=== PATIENT | male | born 1980 | race Caucasian/White ===

== ENCOUNTER 2019-04-04 13:09 | Observation (INO) ==
[2019-04-04] MEDS ORDERED: ONDANSETRON 4 MG/2 ML VIAL IV ONE (13:28)
[2019-04-04] MEDS ORDERED: 0.9 % SODIUM CHLORIDE 1,000 ML IV ONE ×3 (13:31→15:53)
[2019-04-04] MEDS ORDERED: 0.9 % SODIUM CHLORIDE 2,000 ML IV ONE (13:34)
[2019-04-04] MEDS ORDERED: HYDROmorphone 2 MG/ML VIAL IV ONE (13:34)
--- NOTE | 2019-04-04 13:41 | Emergency Department Note ---
General Adult HPI - General Chief complaint: Nausea/Vomiting/Diarrhea Stated complaint: N/V, Red emesis, Abd Pain Time Seen by Provider: 04/04/19 13:20 Source: patient, family Mode of arrival: ambulatory Limitations: no limitations - History of Present Illness HPI Narrative: 38-year-old male comes in with the onset of nausea vomiting started this morning when he woke up. He was seen yesterday in the ER for a severe headache that had been going on for [address] did a CT scan of the head and soft tissues of the neck which was unrevealing except for perhaps mild cellulitis of the back of his neck and some degenerative changes. He notes melena this morning with stool. He is having severe epigastric pain as well. Cannot stop vomiting - Related Data Previous Rx's Medication Instructions Recorded Cephalexin [Keflex] 500 mg PO QID #40 cap 04/03/19 Allergies Allergy/AdvReac Type Severity Reaction Status Date / Time No Known Drug Allergies Allergy Verified 04/03/19 12:06 Review of Systems All systems ED: reviewed and negative except as stated. Past Medical History - Past Medical History Attestation: Yes: The following information was validated with the patient. Medical history: Reports: other (CHRONIC BACK PAIN) Surgical history ED: Reports: non-contributory - Social History smoking status: Current some day smoker Alcohol use: Reports: Occasionally Drug use: Reports: none Physical Exam Thin male mildly diaphoretic. Normocephalic atraumatic. Conjunctive are clear sclerae white and icteric. No nasal discharge or congestion. Oropharynx pink moist. Neck is supple without lymphadenopathy or thyromegaly. Exam of the posterior neck shows cervical prominence with mild redness. Nontender to palpation. I do not feel any fluctuance or induration suggestive of an abscess- this looks more like a lipoma-his sunburn complicates diagnosis . He does report neck tenderness after laying down no but not over the prominence. He is able to move his neck and head normally. his prominence is approximately 4 cm in diameter so and again is mildly erythematous. Heart is regular rate and rhythm. He has displacement of the PMI inferiorly. Lungs are clear to auscultation bilaterally without wheezes rales rhonchi or respiratory distress. Back does show evidence of scoliosis. Abdomen is soft tender in the epigastric area but otherwise not. No peritoneal signs or guarding. He is violently retching from time to time. No pedal edema. +2 radial pulse. Alert oriented I came back later did a rectal exam. He is got a small external hemorrhoid tag but there is no bleeding or fissure noted. Hemoccult negative. Adequate rectal tone Limitations: no limitations Course Vital Signs Temperature 97.0 F 04/04/19 13:10 Pulse Rate 61 04/04/19 13:10 Respiratory Rate 30 H 04/04/19 13:10 Blood Pressure 119/72 04/04/19 13:10 Pulse Oximetry (%) 100 04/04/19 13:10 Temperature 97.0 F 04/04/19 13:10 Pulse Rate 77 04/04/19 15:50 Respiratory Rate 24 H 04/04/19 13:31 Blood Pressure 115/73 04/04/19 15:50 Pulse Oximetry (%) 98 04/04/19 15:50 Medical Decision Making - Lab Data Lab results reviewed: Yes I reviewed the patient's lab results. Result diagrams: 04/04/19 13:39 04/04/19 13:39 Lab Results 04/04/19 04/04/19 Range/Units 13:39 13:39 WBC 26.5 H (4.5-11.0) K/mcL RBC 4.59 (4.50-5.90) M/mcL Hgb 12.1 L (13.5-16.5) g/dL Hct 37.8 L (41.0-55.0) % MCV 82.4 (80.0-100.0) fL MCH 26.4 (26.0-34.0) pg MCHC 32.1 (31.0-36.0) g/dL RDW 15.5 H (11.5-14.5) % Plt Count 223 (140-440) K/mcL MPV 10.2 (7.4-10.4) fL Gran % 89.0 H (38.0-78.0) % Lymph % (Auto) 4.9 L (15.5-49.0) % Rooks % (Auto) 6.0 (1.0-12.0) % Eos % (Auto) 0 (0.0-7.0) % Baso % (Auto) 0.1 (0.0-2.0) % Gran # 23.6 H (1.8-8.0) K/mcL Lymph # (Auto) 1.3 L (1.5-4.8) K/mcL Rooks # (Auto) 1.6 H (0.1-0.9) K/mcL Eos # (Auto) 0 (0.0-0.7) K/mcL Baso # (Auto) 0 (0.0-0.3) K/mcL Sodium 143 (133-145) mmol/L Potassium 3.6 (3.3-5.1) mmol/L Chloride 106 (96-108) mmol/L Carbon Dioxide 22 (22-30) mmol/L Anion Gap 15.0 (8-16) BUN 14 (6-20) mg/dl Creatinine 0.8 (0.7-1.2) mg/dl GFR Calculation 113 Glucose 150 H (70-105) mg/dL Calcium 9.2 (8.6-10.4) mg/dl Total Bilirubin 0.6 (0.0-1.0) mg/dL AST 18 (0-37) U/l ALT 13 (0-40) U/l Alkaline Phosphatase 64 (39-117) U/L Total Protein 7.2 (5.9-8.4) gm/dL Albumin 4.4 (3.2-5.2) gm/dL Globulin 2.8 (2.2-3.7) gm/dL Albumin/Globulin Ratio 1.6 (1.0-2.3) Amylase 62 (28-100) U/L Lipase 16 (7-60) U/L - Radiology Data Radiology results reviewed: Yes I reviewed the patient's radiology results. X-ray of the abdomen 2 views shows nonspecific bowel gas pattern. No free air under the diaphragm. Significant scoliosis is noted Disposition Pt seen by COMMUNITY HEALTH EDUCATOR/PA only: No Clinical Impression: Drug-induced nausea and vomiting, Upper GI bleed, Melena Summary: Suspect drug-induced nausea and vomiting from medications received yesterday i.e. Keflex and Robaxin. He may have an ulcer as well with associated melena and coffee-ground emesis-i.e. an upper GI bleed. Esophagitis is also in the differential especially given his violent retching. Order laboratory and x-ray. Start IV fluids Nexium and Zofran Discussed results with patient and with Dr. Freedom Waddell, landing signal officer. He agreed to accept the patient as a tour consultant do endoscopy. We will continue Nexium drip. Patient is requiring Dilaudid for belly pain as well I then discussed the case with Dr. Khan, hospitalist, who agreed to accept the patient for further care and evaluation in the hospital Disposition: Xfer As Inpt ([facility]) Condition: Fair Referrals: Sadie Parrish PA-C [Primary Care Provider] -
[2019-04-04] MEDS ORDERED: ESOMEPRAZOLE 80 MG in 0.9 % SODIUM CHLORIDE 50 ML IV SCH (13:45)
[2019-04-04] MEDS ORDERED: ESOMEPRAZOLE 80 MG in 0.9 % SODIUM CHLORIDE 50 ML IV ONE (14:15)
--- NOTE | 2019-04-04 14:23 | XRay Report ---
CLINICAL INFORMATION: melena, epigastric pain COMPARISON: None. FINDINGS: The stool gas pattern is unremarkable. There is no free air, soft tissue mass, organomegaly or pathologic calcification. IMPRESSION: Normal abdomen Interpreted and Authenticated by: Farzad Alfaro 04/04/19
[2019-04-04 14:26] LABS: Basophils # (Auto) 0 K/mcL (0.0-0.3); Basophils % (Auto) 0.1 % (0.0-2.0); Eosinophils # (Auto) 0 K/mcL (0.0-0.7); Eosinophils % (Auto) 0 % (0.0-7.0); Hematocrit 37.8 % (41.0-55.0); Hemoglobin 12.1 g/dL (13.5-16.5); Lymphocytes # (Auto) 1.3 K/mcL (1.5-4.8); Lymphocytes % (Auto) 4.9 % (15.5-49.0); Mean Cell Volume 82.4 fL (80.0-100.0); Mean Corpuscular HGB Conc 32.1 g/dL (31.0-36.0); Mean Platelet Volume 10.2 fL (7.4-10.4); Monocytes # (Auto) 1.6 K/mcL (0.1-0.9); Platelet Count 223 K/mcL (140-440); RBC 4.59 M/mcL (4.50-5.90); Red Cell Distribution Width 15.5 % (11.5-14.5); WBC 26.5 K/mcL (4.5-11.0)
[2019-04-04] MEDS: HYDROmorphone 2 MG/ML VIAL IV PRN ×4 (14:33→18:44)
[2019-04-04 14:48] LABS: ALT/SGPT 13 U/l (0-40); AST/SGOT 18 U/l (0-37); Albumin 4.4 gm/dL (3.2-5.2); Albumin/Globulin Ratio 1.6 (1.0-2.3); Alkaline Phosphatase 64 U/L (39-117); Amylase 62 U/L (28-100); Bilirubin,Total 0.6 mg/dL (0.0-1.0); Blood Urea Nitrogen 14 mg/dl (6-20); Calcium 9.2 mg/dl (8.6-10.4); Carbon Dioxide 22 mmol/L (22-30); Chloride 106 mmol/L (96-108); Globulin 2.8 gm/dL (2.2-3.7); Glomerular Filtration Rate 113; Glucose 150 mg/dL (70-105)
[2019-04-04] MEDS ORDERED: PANTOPRAZOLE 80 MG in 0.9 % SODIUM CHLORIDE 100 ML IV SCH (15:30)
[2019-04-04] MEDS ORDERED: ESOMEPRAZOLE 80 MG in 0.9 % SODIUM CHLORIDE 100 ML IV SCH (16:00)
--- NOTE | 2019-04-04 16:37 | Internal Med History&Physical ---
Medical - H&P: HPI Patient information: Note initiated : 04/04/19 at 4:34 pm Service Date, if different from initiated Date: [] Patient: Joel Morton a 38 y/o M admitted on for N/V, Red emesis, Abd Pain. Chief Complaint: [] History of present illness: Mr. Morton is a 38 year old M with history of scoliosis and chronic pain presents to the emergency room for evaluation of nausea vomiting. The patient notes his symptoms started approximately 1 week ago he had a headache, that has been in the occipital region sharp worse with activity better with rest and pain meds. The patient was seen in the emergency room yesterday for this headache and neck pain. He had a CT scan done which was unremarkable, the patient had a neck CT done which showed that he has C7 nerve compression. There was also concern about questionable cellulitis between see 3 and T2 region. The patient has a swelling in that region which he noticed a few months ago. It was a painless swelling but was uncomfortable for the patient. The pa tient was prescribed some Keflex and muscle relaxants and sent home. This morning the patient woke up with significant epigastric abdominal pain sharp in nature associated with nausea and vomiting, he noted that he had noticed black stools. No bright red blood in stool. He did have initially dark blackish old clots according to him in the initial vomitus, which later then became bright red blood. Total volume is approximately 2 to 3 teaspoons. He thought that his symptoms were resolved by itself and therefore he waited for a few hours when the symptoms did not respond he came to the emergency room for further evaluation. The patient denies any changes in vision or difficulty in swallowing any photophobia or phonophobia any chest pain shortness of breath cough he does admit to having abdominal pain nausea vomiting, denies any urinary complaints has chronic pain in his ankles otherwise no other skin rashes or joint pains. On presenting to the emergency room, patient was afebrile hemodynamically stable saturating more than 90% on room air. Labs show a WBC count of 26,000, hemoglobin of 12.1, it was 12.6 yesterday, yesterday WBC count was normal. Platelets 223. Elect lites are stable BUN is 14 glucose is 150 GI was consulted who advised that the patient would benefit from an endoscopy patient is being admitted to the hospital for EGD scope he can concern for upper GI bleed. All systems: reviewed and no additional remarkable complaints except as stated (After today's lab) Medical - H&P: H Medical history: Medical History (Last Updated 01/15/19 @ 14:49 by Viktoria Whitman) Scoliosis (Chronic) Gout (Chronic ~2016) Depression (Chronic ~1990) Anxiety (Chronic ~1990) Chronic back pain (Acute) History of scoliosis (Acute) Surgical history: Past Surgical History (Last Updated 01/15/19 @ 14:49 by Viktoria Whitman) History of hernia surgery (Chronic) Family history: reviewed and not pertinent Social history: Active smoker Daily marijuana use Denies other recreational drug use Denies use of alcohol Medical - H&P: Meds Home Medications Medication Instructions Recorded Confirmed Type Cephalexin [Keflex] 500 mg PO QID #40 cap 04/03/19 Rx Allergies Allergy/AdvReac Type Severity Reaction Status Date / Time No Known Drug Allergies Allergy Verified 04/03/19 12:06 Medical - H&P: Exam - Constitutional Vitals: Temp Pulse Resp BP Pulse Ox 97.0 F 64 24 H 114/71 100 04/04/19 13:10 04/04/19 16:34 04/04/19 13:31 04/04/19 16:31 04/04/19 16:34 Exam: GENERAL: The patient is a well-developed, well-nourished in no apparent distress. Is alert and oriented x3. VITAL SIGNS: Reviewed and as noted elsewhere. HEENT: Head is normocephalic and atraumatic. Extraocular muscles are intact. Pupils are equal, round, and reactive to light. Nares appeared normal. Mouth appears any without lesions. Mucous membranes are moist. NECK: Normal to inspection, Supple, No lymphadenopathy or thyromegaly. On the posterior aspect of the neck there is a swelling, approximately 3 x 3 cm, it is mobile appears to be a lipoma. There is increased warmth and edema in that region but only mild. No obvious abscess noted LUNGS: Air entry equal on both sides, no wheezing, crackles or rhonchi noted. No accessory muscles of respiration HEART: Regular rate and rhythm normal, S1 and S2 heard, no Gallop, S3 or Rub Noted, No Gross murmur heard. ABDOMEN: Soft, epigastric tenderness no rebound no guarding and nondistended. Positive bowel sounds. No hepatosplenomegaly was noted. EXTREMITIES: No cyanosis, clubbing, rash, lesions or edema. NEUROLOGIC: Cranial nerves II through XII are grossly intact. Motor and Sensory System Grossly Intact, patient has a scoliosis PSYCHIATRIC: Normal affect, Normal Mood. Appropriate Behavior. SKIN: No ulceration or wounds noted, No jaundice, No rash noted. Medical - H&P: Reslt - Labs CBC & Chem 7: 04/04/19 13:39 04/04/19 13:39 Labs: Short CBC 04/04/19 Range/Units 13:39 WBC 26.5 H (4.5-11.0) K/mcL Hgb 12.1 L (13.5-16.5) g/dL Hct 37.8 L (41.0-55.0) % Plt Count 223 (140-440) K/mcL BMP 04/04/19 13:39 Sodium 143 Potassium 3.6 Chloride 106 Carbon Dioxide 22 BUN 14 Creatinine 0.8 Glucose 150 H Calcium 9.2 Liver Function 04/04/19 Range/Units 13:39 Total Bilirubin 0.6 (0.0-1.0) mg/dL AST 18 (0-37) U/l ALT 13 (0-40) U/l Alkaline Phosphatase 64 (39-117) U/L Albumin 4.4 (3.2-5.2) gm/dL Medical - H&P: A/P - Narrative A/P Narrative: A/P Upper GI bleed -IV nexium drip, high risk given daily nsaid use, tobacco use, -EGD today -Hb is stable since yesterday, which is reassuring, bun normal is also reassuring. Leucocytsois/ Cellulitis -Reactive vs alternative pathology -not sure if cellulitis is the true etiology, -On IV vanco and rocehin for now, send blood cx, ua, cxr chest, procalcitonin Lipoma Neck -increases risk of infection, may benefit from resection. Neck pain/headache -Head CT neg, clinically low suspipciaion of meningitis, no neck stiffnes -C spine shows spur, compression on c7 Underweight, bmi 16.7 -check HIV DVT scd Full code NPO status
--- NOTE | 2019-04-04 17:07 | XRay Report ---
CLINICAL INFORMATION: leucocytosis COMPARISON: None. FINDINGS: Heart size, mediastinum and pulmonary vessels are normal. The lungs are clear. Moderate dextroscoliosis noted. IMPRESSION: No acute cardiopulmonary disease Interpreted and Authenticated by: Farzad Alfaro 04/04/19
[2019-04-04] MEDS ORDERED: NALOXONE HCL 0.4 MG/ML VIAL IV PRN (17:46)
[2019-04-04] MEDS ORDERED: VANCOMYCIN PER PHARMACY IV SCH (17:46)
[2019-04-04] MEDS: DEXTROSE 5%-1/2NS 1,000 ML IV SCH (17:59)
[2019-04-04 18:43] LABS: Alcohol, Urine NONE DETECTED (NONDETECTED); Amphetamine Screen,Urine NONE DETECTED (NONDETECTED); Barbiturate Screen,Urine NONE DETECTED (NONDETECTED); Benzodiazepines Screen,Urine NONE DETECTED (NONDETECTED); Cannabinoid Screen,Urine SUSPECT POSITIVE (NONDETECTED); Cocaine Screen,Urine NONE DETECTED (NONDETECTED); Opiate Screen,Urine SUSPECT POSITIVE (NONDETECTED); Oxycodone, Urine Screen NONE DETECTED (NONDETECTED); Phencyclidine Screen,Urine NONE DETECTED (NONDETECTED)
[2019-04-04] MEDS: cefTRIAXone 1 GM VIAL IV SCH (18:43)
[2019-04-04 19:24] LABS: INR 1.1 (0.9-1.1); Prothrombin Time 14.5 sec (11.9-14.5)
[2019-04-04] MEDS: VANCOMYCIN 1,000 MG in 0.9 % SODIUM CHLORIDE 250 ML IV SCH (19:24)
[2019-04-04 19:29] LABS: Amylase 59 U/L (28-100)
[2019-04-04 20:44] LABS: Appearance,Urine CLEAR; Bacteria,Urine 0 /hpf (0); Bilirubin,Urine NEG (NEG); Color,Urine YELLOW; Culture Indicated,Urine NO; Glucose,Urine (UA) NEGATIVE (NEG); Ketones,Urine NEG (NEG); Leukocyte Esterase,Urine NEG /uL (NEG); Mucus,Urine FEW /hpf (0); Nitrate,Urine NEG (NEG); Protein,Urine NEG (NEG); Urine Blood NEG mg/dL (<0.03); Urine RBC 1 /hpf (0-1); Urine Squamous Epithelial Cell 0 /hpf (0-4); Urine WBC 1 /hpf (0-4); Urobilinogen,Urine NEG (NEG)
[2019-04-04] MEDS: 0.9 % SODIUM CHLORIDE 10 ML SYRINGE IV SCH (22:43)
[2019-04-05] MEDS: ESOMEPRAZOLE 80 MG in 0.9 % SODIUM CHLORIDE 100 ML IV SCH ×2 (00:12→09:42)
[2019-04-05] MEDS: DEXTROSE 5%-1/2NS 1,000 ML IV SCH ×3 (01:29→13:24)
[2019-04-05] MEDS: HYDROmorphone 2 MG/ML VIAL IV PRN ×5 (02:52→14:04)
[2019-04-05] MEDS: 0.9 % SODIUM CHLORIDE 10 ML SYRINGE IV SCH ×2 (05:17→14:15)
[2019-04-05 05:29] LABS: Basophils # (Auto) 0.1 K/mcL (0.0-0.3); Basophils % (Auto) 0.6 % (0.0-2.0); Eosinophils # (Auto) 0.1 K/mcL (0.0-0.7); Eosinophils % (Auto) 0.4 % (0.0-7.0); Granulocytes % (Auto) 70.6 % (38.0-78.0); Hemoglobin 10.3 g/dL (13.5-16.5); Lymphocytes # (Auto) 3.1 K/mcL (1.5-4.8); Lymphocytes % (Auto) 22.2 % (15.5-49.0); Mean Cell Volume 82.9 fL (80.0-100.0); Mean Corpuscular HGB Conc 32.1 g/dL (31.0-36.0); Mean Platelet Volume 10.1 fL (7.4-10.4); Monocytes # (Auto) 0.8 K/mcL (0.1-0.9); Monocytes % (Auto) 6.2 % (1.0-12.0); Platelet Count 174 K/mcL (140-440); RBC 3.86 M/mcL (4.50-5.90); WBC 13.8 K/mcL (4.5-11.0)
[2019-04-05 05:51] LABS: ALT/SGPT 10 U/l (0-40); AST/SGOT 14 U/l (0-37); Albumin 3.5 gm/dL (3.2-5.2); Albumin/Globulin Ratio 1.7 (1.0-2.3); Alkaline Phosphatase 47 U/L (39-117); Bilirubin,Direct < 0.2 mg/dL (0.0-0.3); Bilirubin,Total 0.5 mg/dL (0.0-1.0); Blood Urea Nitrogen 10 mg/dl (6-20); Calcium 7.9 mg/dl (8.6-10.4); Carbon Dioxide 28 mmol/L (22-30); Chloride 110 mmol/L (96-108); Globulin 2.1 gm/dL (2.2-3.7); Glomerular Filtration Rate 119; Glucose 91 mg/dL (70-105); Lactate Dehydrogenase 130 U/L (94-250); Phosphorous 2.1 mg/dL (2.7-4.5); Triglycerides 62 mg/dl (<150); Uric Acid 2.9 mg/dL (2.5-8.0)
[2019-04-05] MEDS ORDERED: POTASSIUM CHLORIDE 40 MEQ in DEXTROSE 5% IN WATER 500 ML IV ONE (08:00)
[2019-04-05] MEDS: VANCOMYCIN 1,000 MG in 0.9 % SODIUM CHLORIDE 250 ML IV SCH (08:20)
[2019-04-05] MEDS: cefTRIAXone 1 GM VIAL IV SCH (08:38)
[2019-04-05] MEDS ORDERED: NICOTINE 21 MG PATCH TOPICAL SCH (10:00)
[2019-04-05] MEDS: ONDANSETRON 4 MG/2 ML VIAL IV PRN ×2 (10:40→14:59)
[2019-04-05] MEDS: ACETAMINOPHEN 1,000 MG/100 ML BOTTLE IV SCH ×2 (11:04→15:01)
[2019-04-05] MEDS ORDERED: KETAMINE HCL 50 MG/ML ML IV PRN (12:59)
[2019-04-05] MEDS ORDERED: PROPOFOL 200 MG/20 ML VIAL IV SCH (13:00)
[2019-04-05] MEDS ORDERED: MIDAZOLAM 2 MG/2 ML VIAL IV SCH (13:00)
--- NOTE | 2019-04-05 15:50 | Internal Med Progress Note ---
Medical - PN: Subj Patient information: Note initiated : 04/05/19 at 3:16 pm Service Date, if different from initiated Date: [] Patient: Joel Morton a 38 y/o M admitted on 04/04/19 for N/V, Red emesis, Abd Pain. Chief Complaint: [] Interval history: Mr. Morton is a 38 year old M with history of scoliosis and chronic pain presents to the emergency room for evaluation of nausea vomiting. The patient notes his symptoms started approximately 1 week ago he had a headache, that has been in the occipital region sharp worse with activity better with rest and pain meds. The patient was seen in the emergency room yesterday for this headache and neck pain. He had a CT scan done which was unremarkable, the patient had a neck CT done which showed that he has C7 nerve compression. There was also concern about questionable cellulitis between see 3 and T2 region. The patient has a swelling in that region which he noticed a few months ago. It was a painless swelling but was uncomfortable for the patient. The patient was prescribed some Keflex and muscle relaxants and sent home. This morning the patient woke up with significant epigastric abdominal pain sharp in nature associated with nausea and vomiting, he noted that he had noticed black stools. No bright red blood in stool. He did have initially dark blackish old clots according to him in the initial vomitus, which later then became bright red blood. Total volume is approximately 2 to 3 teaspoons. He thought that his symptoms were resolved by itself and therefore he waited for a few hours when the symptoms did not respond he came to the emergency room for further evaluation. The patient denies any changes in vision or difficulty in swallowing any photophobia or phonophobia any chest pain shortness of breath cough he does admit to having abdominal pain nausea vomiting, denies any urinary complaints has chronic pain in his ankles otherwise no other skin rashes or joint pains. On presenting to the emergency room, patient was afebrile hemodynamically stable saturating more than 90% on room air. Labs show a WBC count of 26,000, hemoglobin of 12.1, it was 12.6 yesterday, yesterday WBC count was normal. Platelets 223. Elect lites are stable BUN is 14 glucose is 150 GI was consulted who advised that the patient would benefit from an endoscopy patient is being admitted to the hospital for EGD scope he can concern for upper GI bleed. 04/05 Patient seen examined , has chr back issues no nausea, but still has abdominal discomfort no new complaints or concerns EGD planned for today, Hb is 10.3 Pt has asymptomatic sinus bradycardia tsh wnl - Constitutional Vitals: Vital Signs Temp Pulse Resp BP Pulse Ox 98.7 F 72 17 119/72 99 04/05/19 11:58 04/04/19 21:52 04/05/19 07:53 04/05/19 11:58 04/05/19 11:58 Period Temp Pulse Resp BP Sys/Crews Pulse Ox Last 24 Hr 97.6 F-99.6 F 52-97 16-20 99-131/66-85 94-100 Intake and Output 04/05/19 04/05/19 04/05/19 05:59 13:59 21:59 Intake Total 1250 1445 520 Output Total 625 625 Balance 625 820 520 Intake & Output: Intake & Output 04/05/19 04/05/19 04/05/19 05:59 13:59 21:59 Intake Total 1250 1445 520 Output Total 625 625 Balance 625 820 520 Intake: IV 1250 1445 520 Dextrose 5%-1/2Ns IV Solution 1 1000 1000 ,000 ml @ 150 mls/hr IV .[id number] [facility]EN Rx#:[id number] Nexium 80 mg In Sodium Chloride 95 0.9% 100 ml @ 10 mls/hr IV Q10H WARREN Rx#:[id number] Vancomycin 1,000 mg In Sodium 250 250 Chloride 0.9% 250 ml @ 250 mls/ hr IV Q12H WARREN Rx#:[id number] Output: Void Amount 625 625 Other: Urine Appearance Clear Urine Color Pale Urine Odor Normal Exam: Constitutional; Afebrile, cooperative, alert, not in distress. Eyes- No icterus, , No periorbital swelling Ears- Ext ear normal, hearing normal to conversation. Neck- Midline trachea, supple Respiratory system: Air Entry equal on both sides, No crackles or wheezing, no rhonchi. CVS- Rate rhythm regular, S1,S2 heard, no gallop, no rub. Abdomen- Soft nontender abdomen, no organomegaly, no tenderness, no guarding or rigidity, HEALTH WORKER- AOOx3, moving all extremities, no gross focal deficit noted. Medical - PN: Obj Da - Labs CBC & Chem 7: 04/05/19 03:17 04/05/19 03:17 Labs: Abnormal Lab Results 04/05/19 04/05/19 04/04/19 03:17 03:17 Unknown WBC 13.8 H RBC 3.86 L Hgb 10.3 L Hct 32.0 L RDW 16.0 H Gran % Lymph % (Auto) Gran # 9.7 H Lymph # (Auto) [place] # (Auto) VBG Lactic Acid Chloride 110 H Anion Gap 6.0 L Glucose Calcium 7.9 L Phosphorus 2.1 L Total Protein 5.6 L Globulin 2.1 L Urine Opiates Screen Suspect positive A U Marijuana (THC) Screen Suspect positive A 04/04/19 04/04/19 04/04/19 17:57 13:39 13:39 WBC 26.5 H RBC Hgb 12.1 L Hct 37.8 L RDW 15.5 H Gran % 89.0 H Lymph % (Auto) 4.9 L Gran # 23.6 H Lymph # (Auto) 1.3 L [place] # (Auto) 1.6 H VBG Lactic Acid 2.1 H Chloride Anion Gap Glucose 150 H Calcium Phosphorus Total Protein Globulin Urine Opiates Screen U Marijuana (THC) Screen Meds: Medications Ceftriaxone Sodium (Rocephin) 1 gm IV DAILY WARREN; Protocol Last Admin: 04/05/19 08:38 Dose: 1 gm Documented by: Diagnostic Test (Pha) (Accu-Chek) 1 each FS ONCE [facility] Stop: 04/05/19 20:59 Hydromorphone HCl (Dilaudid) 0.5 mg IV Q2HP PRN PRN Reason: PAIN LEVEL > 6 Last Admin: 04/05/19 14:04 Dose: 0.5 mg Documented by: Esomeprazole Magnesium 80 mg/ (Sodium Chloride) 100 mls @ 10 mls/hr IV Q10H WARREN Last Admin: 04/05/19 09:42 Dose: 10 mls/hr Documented by: Dextrose/Sodium Chloride (Dextrose 5%-1/2ns Iv Solution) 1,000 mls @ 150 mls/hr IV .Q6H40M WARREN Last Admin: 04/05/19 13:24 Dose: Not Given Documented by: Vancomycin HCl 1,000 mg/ (Sodium Chloride) 250 mls @ 250 mls/hr IV Q12H [facility] [place] Last Infusion: 04/05/19 10:00 Dose: Infused Documented by: Acetaminophen (Ofirmev) 1,000 mg in 100 mls @ 200 mls/hr IV TID [facility] [place] Last Admin: 04/05/19 15:01 Dose: 200 mls/hr Documented by: Ketamine HCl (Ketamine Hcl) 50 mg IV ONCE PRN PRN Reason: Sedation Stop: 04/05/19 20:59 Midazolam HCl (Versed) 0 mg IV ONCE [facility]EN Stop: 04/05/19 20:59 Naloxone HCl (Narcan) 0.1 mg IV Q2MIN PRN PRN Reason: Opiate Reversal Nicotine (Nicoderm) 21 mg TOPICAL DAILY@1000 [facility] Last Admin: 04/05/19 11:25 Dose: 21 mg Documented by: Ondansetron HCl (Zofran) 4 mg IV Q4HP PRN PRN Reason: Nausea And Vomiting Last Admin: 04/05/19 14:59 Dose: 4 mg Documented by: Propofol (Diprivan) 0 mg IV ONCE [facility]EN Stop: 04/05/19 20:59 Sodium Chloride (Saline Flush) 10 ml IV Q8 [facility] [place] Last Admin: 04/05/19 14:15 Dose: 10 ml Documented by: Vancomycin HCl (Vancomycin Per Pharmacy) 1 order IV UD [facility] [place]; Protocol Medical - PN: A/P - Time Spent With Patient Total time spent is greater than 50% in coordination of care (as documented) at patient's floor/unit and/or counseling patient: - Narrative A/P Narrative: A/P Upper GI bleed Continue Nexium, upper endoscopy planned for today. Abdominal pain -EGD planned for today, if negative will consider CT abdomen and pelvis if pain persists Leucocytosis/ Cellulitis -Reactive vs alternative pathology -Procalcitonin is low, patient's responding well to antibiotics, continue IV Rocephin and ceftriaxone for now Lipoma Neck -increases risk of infection, may benefit from resection. Neck pain/headache -Head CT neg, clinically low suspicion of meningitis, no neck stiffens -C spine shows spur, compression on c7 Underweight, bmi 16.7 -hiv neg tobacco abuse -nicotine replacement DVT scd Full code NPO status Medical - PN: Qual - VTE Deep Vein Thrombosis/Pulmonary Embolism Present on Admission: No
[2019-04-05] MEDS ORDERED: PROPOFOL 20 ML IV ONE (16:00)
[2019-04-05] MEDS ORDERED: MIDAZOLAM 2 MG/2 ML VIAL ONE (16:00)
--- NOTE | 2019-04-05 18:19 | Discharge Summary ---
Medical - DS: Prov Patient information: Note initiated : 04/05/19 at 6:17 pm Service Date, if different from initiated Date: [] Patient: Joel Morton 38 y/o M admitted on 04/04/19 for N/V, Red emesis, Abd Pain. Chief Complaint: [] Date of admission: 04/04/19 17:40 Discharge date: 04/05/19 Primary care physician: Sadie Parrish PA-C Consults: 04/04/19 Consult to Physician [CONS] Stat Comment: Consulting Provider: Freedom Vargas Reason For Exam: Physician to Consult Consult to Physician [CONS] Stat Comment: Consulting Provider: Mitchell Khan Reason For Exam: Physician to Consult Discharging clinician: Mitchell Khan Medical - DS: Meds - Discharge Medications Prescriptions: Cephalexin [Keflex] 500 mg PO QID #20 cap Ondansetron HCl [Zofran] 4 mg PO Q4-6H PRN #20 tab PRN Reason: Nausea And Vomiting Pantoprazole [Protonix] 40 mg PO QAMAC #90 tab Sulfamethoxazole/Trimethoprim [Bactrim Ds] 1 tab PO BID #10 tab Active and Home Medications: Home Medications Cephalexin [Keflex] 500 mg PO QID #40 cap 04/03/19 [Rx Confirmed 04/04/19 Last Taken Unknown] Medical - DS: Hosp Hospital course: Mr. Morton is a 38 year old M with history of scoliosis and chronic pain presents to the emergency room for evaluation of nausea vomiting. The patient notes his symptoms started approximately 1 week ago he had a headache, that has been in the occipital region sharp worse with activity better with rest and pain meds. The patient was seen in the emergency room yesterday for this headache and neck pain. He had a CT scan done which was unremarkable, the patient had a neck CT done which showed that he has C7 nerve compression. There was also concern about questionable cellulitis between see 3 and T2 region. The patient has a swelling in that region which he noticed a few months ago. It was a painless swelling but was uncomfortable for the patient. The patient was prescribed some Keflex and muscle relaxants and sent home. This morning the patient woke up with significant epigastric abdominal pain sharp in nature associated with nausea and vomiting, he noted that he had noticed black stools. No bright red blood in stool. He did have initially dark blackish old clots according to him in the initial vomitus, which later then became bright red blood. Total volume is approximately 2 to 3 teaspoons. He thought that his symptoms were resolved by itself and therefore he waited for a few hours when the symptoms did not respond he came to the emergency room for further evaluation. The patient denies any changes in vision or difficulty in swallowing any photophobia or phonophobia any chest pain shortness of breath cough he does admit to having abdominal pain nausea vomiting, denies any urinary complaints has chronic pain in his ankles otherwise no other skin rashes or joint pains. On presenting to the emergency room, patient was afebrile hemodynamically stable saturating more than 90% on room air. Labs show a WBC count of 26,000, hemoglobin of 12.1, it was 12.6 yesterday, yesterday WBC count was normal. Platelets 223. Elect lites are stable BUN is 14 glucose is 150 GI was consulted who advised that the patient would benefit from an endoscopy patient is being admitted to the hospital for EGD scope he can concern for upper GI bleed. Patient seen and examined, still has chronic back pain issues. Has no nausea no vomiting. Some abdominal discomfort but better. Had endoscopy done today which is negative gastritis noted, given that the patient uses NSAIDs patient has been advised to start on pantoprazole 40 mg once a day. For the cellulitis he will complete the course of antibiotics for 5 more days with Bactrim and Keflex. I am also going to prescribe him some ondansetron. Patient feels comfortable being discharged home today. I have advised him to follow-up with his PCP in 1 week, I would recommend a repeat CBC in a week's time to document stability Patient can follow-up or call the GI clinic to get results of his biopsy Discharge diagnosis: gastritits, cellulitis - Time Spent with Patient Total time spent providing and/or coordinating discharge services: Greater than 30 minutes Medical - DS: Exam - Constitutional Vitals: Vital Signs Temp Pulse Pulse Resp BP BP Pulse Ox 04/05/19 17:43 71 15 101/73 100 04/05/19 17:38 70 17 101/56 100 04/05/19 17:18 72 17 125/77 100 04/05/19 17:11 98.1 F 125/77 100 04/05/19 11:58 98.7 F 119/72 99 04/05/19 10:56 125/74 97 04/05/19 08:00 61 17 99 04/05/19 07:56 120/68 97 04/05/19 07:53 99.0 F 17 120/68 99 04/05/19 04:18 98.8 F 18 112/68 94 04/04/19 23:37 99.6 F H 18 114/75 97 04/04/19 23:26 114/75 04/04/19 21:52 72 131/85 100 04/04/19 21:46 98.8 F 72 20 131/85 100 04/04/19 20:01 112/73 97 04/04/19 19:28 99.4 F H 52 L 20 122/76 99 04/04/19 19:22 74 122/76 99 04/04/19 18:46 60 99/81 100 04/04/19 18:31 57 L 113/71 99 Intake and Output 04/05/19 04/05/19 04/05/19 05:59 13:59 21:59 Intake Total 1250 1445 620 Output Total 625 625 600 Balance 625 820 20 Intake: IV 1250 1445 620 Dextrose 5%-1/2Ns IV Solution 1 1000 1000 ,000 ml @ 150 mls/hr IV .[id number] [facility] Rx#:[id number] Nexium 80 mg In Sodium Chloride 95 0.9% 100 ml @ 10 mls/hr IV Q10H [facility] Rx#:[id number] Vancomycin 1,000 mg In Sodium 250 250 Chloride 0.9% 250 ml @ 250 mls/ hr IV Q12H [facility] Rx#:[id number] Output: Void Amount 625 625 600 Other: Urine Appearance Clear Clear Urine Color Pale Bright Yellow Urine Odor Normal Normal Additional comments: Constitutional; Afebrile, cooperative, alert, not in distress. Respiratory system: Air Entry equal on both sides, No crackles or wheezing, no rhonchi. CVS- Rate rhythm regular, S1,S2 heard, no gallop, no rub. Abdomen- Soft nontender abdomen, no organomegaly, no tenderness, no guarding or rigidity, [employer]- AOOx3, moving all extremities, no gross focal deficit noted. Medical - DS: Data Labs on day of discharge: Labs from last 24 hours 04/05/19 04/05/19 04/05/19 03:17 03:17 03:17 WBC 13.8 H RBC 3.86 L Hgb 10.3 L Hct 32.0 L MCV 82.9 MCH 26.6 MCHC 32.1 RDW 16.0 H Plt Count 174 MPV 10.1 Gran % 70.6 Lymph % (Auto) 22.2 Benson % (Auto) 6.2 Eos % (Auto) 0.4 Baso % (Auto) 0.6 Gran # 9.7 H Lymph # (Auto) 3.1 Benson # (Auto) 0.8 Eos # (Auto) 0.1 Baso # (Auto) 0.1 PT INR VBG Lactic Acid Sodium 144 Potassium 3.4 Chloride 110 H Carbon Dioxide 28 Anion Gap 6.0 L BUN 10 Creatinine 0.7 GFR Calculation 119 Glucose 91 Uric Acid 2.9 Calcium 7.9 L Phosphorus 2.1 L Magnesium 1.7 Total Bilirubin 0.5 Direct Bilirubin < 0.2 GGT 17 AST 14 ALT 10 Alkaline Phosphatase 47 Lactate Dehydrogenase 130 Total Protein 5.6 L Albumin 3.5 Globulin 2.1 L Albumin/Globulin Ratio 1.7 Triglycerides 62 Amylase Lipase Procalcitonin TSH 1.93 Urine Color Urine Appearance Urine pH Ur Specific Morrow Urine Protein Urine Glucose (UA) Urine Ketones Urine Occult Blood Urine Nitrate Urine Bilirubin Urine Urobilinogen Ur Leukocyte Esterase Urine RBC Urine WBC Ur Squamous Epith Cells Urine Bacteria Urine Mucus Ur Culture Indicated? Urine Opiates Screen Ur Opiates Confirm Ur Oxycodone Screen Urine Methadone Screen Ur Methadone Confirm Ur Barbiturates Screen Ur Barbiturate Confirm Ur Phencyclidine Scrn Urine PCP Confirm Ur Amphetamines Screen U Benzodiazepines Scrn U Benzodiazepine Confm Urine Cocaine Screen Urine Cocaine Confirm U Cannabinoids Confirm U Marijuana (THC) Screen Urine Alcohol HIV 1&2 Ag/Ab, 4th Gen 04/04/19 04/04/19 04/04/19 Unknown 17:57 17:57 WBC RBC Hgb Hct MCV MCH MCHC RDW Plt Count MPV Gran % Lymph % (Auto) Benson % (Auto) Eos % (Auto) Baso % (Auto) Gran # Lymph # (Auto) Benson # (Auto) Eos # (Auto) Baso # (Auto) PT INR VBG Lactic Acid Sodium Potassium Chloride Carbon Dioxide Anion Gap BUN Creatinine GFR Calculation Glucose Uric Acid Calcium Phosphorus Magnesium Total Bilirubin Direct Bilirubin GGT AST ALT Alkaline Phosphatase Lactate Dehydrogenase Total Protein Albumin Globulin Albumin/Globulin Ratio Triglycerides Amylase Lipase Procalcitonin < 0.05 TSH Urine Color Urine Appearance Urine pH Ur Specific Morrow Urine Protein Urine Glucose (UA) Urine Ketones Urine Occult Blood Urine Nitrate Urine Bilirubin Urine Urobilinogen Ur Leukocyte Esterase Urine RBC Urine WBC Ur Squamous Epith Cells Urine Bacteria Urine Mucus Ur Culture Indicated? Urine Opiates Screen Suspect positive A Ur Opiates Confirm Not Reportable Ur Oxycodone Screen None detected Urine Methadone Screen None detected Ur Methadone Confirm Not Reportable Ur Barbiturates Screen None detected Ur Barbiturate Confirm Not Reportable Ur Phencyclidine Scrn None detected Urine PCP Confirm Not Reportable Ur Amphetamines Screen None detected U Benzodiazepines Scrn None detected U Benzodiazepine Confm Not Reportable Urine Cocaine Screen None detected Urine Cocaine Confirm Not Reportable U Cannabinoids Confirm Not Reportable U Marijuana (THC) Screen Suspect positive A Urine Alcohol None detected HIV 1&2 Ag/Ab, 4th Gen Non-reactive 04/04/19 04/04/19 04/04/19 17:57 17:57 17:57 WBC RBC Hgb Hct MCV MCH MCHC RDW Plt Count MPV Gran % Lymph % (Auto) Benson % (Auto) Eos % (Auto) Baso % (Auto) Gran # Lymph # (Auto) Benson # (Auto) Eos # (Auto) Baso # (Auto) PT 14.5 INR 1.1 VBG Lactic Acid 2.1 H Sodium Potassium Chloride Carbon Dioxide Anion Gap BUN Creatinine GFR Calculation Glucose Uric Acid Calcium Phosphorus Magnesium Total Bilirubin Direct Bilirubin GGT AST ALT Alkaline Phosphatase Lactate Dehydrogenase Total Protein Albumin Globulin Albumin/Globulin Ratio Triglycerides Amylase 59 Lipase 21 Procalcitonin TSH Urine Color Urine Appearance Urine pH Ur Specific Morrow Urine Protein Urine Glucose (UA) Urine Ketones Urine Occult Blood Urine Nitrate Urine Bilirubin Urine Urobilinogen Ur Leukocyte Esterase Urine RBC Urine WBC Ur Squamous Epith Cells Urine Bacteria Urine Mucus Ur Culture Indicated? Urine Opiates Screen Ur Opiates Confirm Ur Oxycodone Screen Urine Methadone Screen Ur Methadone Confirm Ur Barbiturates Screen Ur Barbiturate Confirm Ur Phencyclidine Scrn Urine PCP Confirm Ur Amphetamines Screen U Benzodiazepines Scrn U Benzodiazepine Confm Urine Cocaine Screen Urine Cocaine Confirm U Cannabinoids Confirm U Marijuana (THC) Screen Urine Alcohol HIV 1&2 Ag/Ab, 4th Gen 04/04/19 17:46 WBC RBC Hgb Hct MCV MCH MCHC RDW Plt Count MPV Gran % Lymph % (Auto) Benson % (Auto) Eos % (Auto) Baso % (Auto) Gran # Lymph # (Auto) Benson # (Auto) Eos # (Auto) Baso # (Auto) PT INR VBG Lactic Acid Sodium Potassium Chloride Carbon Dioxide Anion Gap BUN Creatinine GFR Calculation Glucose Uric Acid Calcium Phosphorus Magnesium Total Bilirubin Direct Bilirubin GGT AST ALT Alkaline Phosphatase Lactate Dehydrogenase Total Protein Albumin Globulin Albumin/Globulin Ratio Triglycerides Amylase Lipase Procalcitonin TSH Urine Color Yellow Urine Appearance Clear Urine pH 5.0 Ur Specific Morrow 1.020 Urine Protein Neg Urine Glucose (UA) Negative Urine Ketones Neg Urine Occult Blood Neg Urine Nitrate Neg Urine Bilirubin Neg Urine Urobilinogen Neg Ur Leukocyte Esterase Neg Urine RBC 1 Urine WBC 1 Ur Squamous Epith Cells 0 Urine Bacteria 0 Urine Mucus Few Ur Culture Indicated? No Urine Opiates Screen Ur Opiates Confirm Ur Oxycodone Screen Urine Methadone Screen Ur Methadone Confirm Ur Barbiturates Screen Ur Barbiturate Confirm Ur Phencyclidine Scrn Urine PCP Confirm Ur Amphetamines Screen U Benzodiazepines Scrn U Benzodiazepine Confm Urine Cocaine Screen Urine Cocaine Confirm U Cannabinoids Confirm U Marijuana (THC) Screen Urine Alcohol HIV 1&2 Ag/Ab, 4th Gen Medical - DS: A/P - Patient/Caregiver Discharge Instructions Diet: Regular Diet Additional Instructions: Avoid NSAIDs as much as possible Please follow-up with your primary care provider in 1 week, consider referral to a pain clinic to see if that can help your neck pain. You do have a prolapsed is impinging on your nerve Take pantoprazole once a day 30 minutes before breakfast. If your insurance does not cover pantoprazole then consider taking omeprazole [id number] Again to be taken 30 minutes before a meal Complete the course of antibiotics, Keflex 500 mg 4 times a day for 5 days as well as Bactrim 1 tablet twice a day for 5 days. Use ondansetron every 4-6 hours as needed if you have some nausea vomiting Go to the emergency room if you notice bright red blood black stools or any other acute concern or complaint Please call the GI clinic as advised to get report on the biopsy done during the time of the upper endoscopy - Follow up Plan Follow up with: Sadie Parrish PA-C [Primary Care Provider] - 04/17/19 1:00 pm (Please check in at 12:45. If you miss this appointment you will need to re-establish care with another provider. ) Freedom Vargas MD [Physician] - (Dr. Vargas's office will contact you after your pathology reports come back to schedule a follow up appointment.) Disposition: Home, Self-Care Prognosis: Fair Rehab Potential: Fair I certify that the patient requires SNF services: No Overall status at discharge: patient is progressing back to baseline Medical - DS: Qual - VTE Deep Vein Thrombosis/Pulmonary Embolism Present on Admission: No
--- NOTE | 2019-04-06 08:32 | Operative Note ---
DATE OF OPERATION: 04/05/2019 PREPROCEDURE DIAGNOSIS: Upper GI bleed secondary to ulcer caused by nonsteroidal anti-inflammatory drugs-ibuprofen. POSTPROCEDURE DIAGNOSES: Gastritis, EGitis, variable hiatal hernia. No active bleeding at this time. PROCEDURE: Esophagogastroduodenoscopy with biopsy. INSTRUMENT USED: Olympus MICK H190 endoscope. SPECIMENS OBTAINED: Biopsies from antrum for histopathology and CLOtest. CLOtest results: Negative INDICATIONS: The patient is a 37-year-old gentleman whose primary care provider is Sadie Parrish PA-C. The patient did present to the emergency department at [facility]. He had a terrible headache. I believe he had been on some Keflex. He has some nausea and vomiting. He had some coffee ground emesis. He did have some melena per rectum. He complained of epigastric pain. He did tell us later that he uses ibuprofen for some back problems. He blames this on scoliosis. He may take #3 to #6 ibuprofen in a day. LABORATORY: His white count was about 26 thousand yesterday. Today, on the it is about 13.8 thousand. Hemoglobin dropped from about 12.1 to about 10.3. Some of this may have been hydration changes. Because of the bleeding and the history of nonsteroidal anti-inflammatory drug use, endoscopy is indicated to evaluate for an ulcer and to treat the presumed bleeding site. INFORMED CONSENT: Time of informed consent 17:50. The procedure was reviewed with the patient. The patient had no further questions and accepts the risks and benefits thereof. One of the risks that were discussed included . Additional risks that were also discussed included bleeding, reaction to medication, possible perforation and possible need for surgery. IV MEDICATIONS USED: Versed 2 mg and propofol 230. FINDINGS: ESOPHAGUS: Proximal, mid and distal esophagus normal. EG junction: This is at 43 cm, sometimes other times at 45 cm. There was slight erythema and edema. There was a variable hiatal hernia from 0 to 3 cm. STOMACH: Cardia normal. Fundus and body: A few petechiae in a few areas of erythema. Most of this, I believe is trauma from vomiting. In the antrum, especially on the anterior wall near the pylorus, there was an area of edema and erythema and scarring with a central depression. I believe this is probably a partially healed ulcer. This is probably the site from when he bled earlier. However, there is no active bleeding now and no definite ulcer crater. Biopsies were taken for histopathology and CLOtest. PYLORUS: Normal. DUODENUM: Normal. The area was checked several times. Mylicon or simethicone was added to the water to wash the mucosa clean to more precisely look for angiodysplasia, tiny ulcers or Dieulafoy's lesions. RECOMMENDATIONS: The patient should try his best to avoid or limit nonsteroidal anti-inflammatory drugs. If he does feel like he must take ibuprofen or something similar, he should take a PPI medication at a healthy dose every day that he takes nonsteroidal anti-inflammatory drugs. Because of that, I have suggested at discharge he could be started on omeprazole 40 mg a day. Prescription can be allowed for #30 with 11 refills. He should call in 2 or 3 weeks and get a CBC in about 1 or 2 weeks would be good. Liquid diet can be started. If there is further bleeding, repeat EGD can be accomplished. I do not believe he will have any significant serious rebleeding. CRD:[email or web address] Job ID: [id number] Doc ID: [id number] Freedom CROUCH
[2019-04-07 20:34] LABS: Cannabinoid Confirmation POSITIVE (N); Opiate Confirmation POSITIVE (N)
--- NOTE | 2019-04-09 12:02 | Surgical Pathology Report ---
HISTOLOGY SPECIMEN MICROSCOPIC DIAGNOSIS STOMACH, ANTRUM, BIOPSY: -- MILD CHRONIC GASTRITIS. -- NO HELICOBACTER TYPE ORGANISMS IDENTIFIED (ALCIAN YELLOW STAIN WITH ADEQUATE TECHNICAL CONTROL). (RLF:kamari) CLINICAL HISTORY Coffee ground emesis; melena; abdominal/epigastric pain; no dysphagia; first EGD; ibuprofen. PROCEDURAL IMPRESSION Gastritis; esophagitis; hiatal hernia - variable. GROSS DESCRIPTION Received in formalin labeled gastric antrum biopsy, are four hernandez tissue fragments 0.2 to 0.5 cm. Totally submitted - one cassette. (STS:kamari) Electronically Signed by: Ilsa Fletcher M.D.
== END 2019-04-05 18:56 | disposition home or self-care (01) ==
LOC: ED 13:09 → ICU 13:09
PROVIDERS: ADMIT Internal Medicine; ATTEND Internal Medicine